=== PATIENT | female | born 1945 | race Caucasian/White ===

== ENCOUNTER 2016-10-18 22:41 | Inpatient (IN) | payer MEDICARE, OTHER ==
--- NOTE | ~2016-10-18 | HP ---
Unit #: [id number] #: [id number] Patient: SUMIT MELENDEZ [id number] [address] [place], [place] [address] [id number] I MR#: [id number] NAME: SUMIT MELENDEZ ROOM: 67361 Age: 71 Sex: F Admission Date: 10/19/2016 : 1945 Attending Physician: Destiney Acevedo M.D. Primary Care Physician: No Primary Care Physician HISTORY AND PHYSICAL CHIEF COMPLAINT Hospital acquired pneumonia with acute hypoxic respiratory failure. HISTORY This pleasant 71-year-old female with hypertension, hypothyroidism, COPD, is admitted for pneumonia. Patient was recently admitted to [facility] for a right total hip dislocation requiring closed reduction under general anesthesia. It sounds as if she was admitted for greater than 48 hours. Shortly after her discharge three days ago she began to experience nonproductive cough with increasing shortness of breath, wheezing, chills, fevers, sweats, pleuritic chest pain, and anorexia. She presented to this emergency department late last evening where her initial O2 saturation was 94% on room air, but she currently is requiring an Oxymizer to keep her O2 sats 93%. On examination she has significant rhonchi throughout. Chest x-ray shows a 5.6 cm right lower lobe density, likely pneumonia, although a mass could not be excluded. PAST MEDICAL HISTORY 1. Hypertension. 2. Hypothyroidism. 3. COPD/asthma. 4. Restless leg syndrome. 5. DJD. 6. Bilateral total hip replacement. Patient is status post recent right hip closed reduction for dislocated right total hip. 7. Appendectomy. 8. Cholecystectomy. 9. Lap band with removal. 10. Hysterectomy. ALLERGIES Sulfa, clindamycin, Macrodantin, Levaquin and Pyridium. HOME MEDICATIONS Lortab 5/325 b.i.d. p.r.n.; Ventolin inhaler as needed; Elavil 25 mg q.h.s.; Norvasc 5 mg daily; aspirin 81 mg daily; BuSpar 5 mg daily; Flexeril 5 mg t.i.d. p.r.n.; Dexilant 60 mg daily; vitamin D2 50,000 units each week; [place] 180 mg daily; Neurontin 600 mg b.i.d.; Synthroid 0.125 mg daily; Singulair 10 mg daily; multivitamin daily; Aleve 220 mg t.i.d. p.r.n.; and possibly potassium. FAMILY HISTORY Unit #: [id number] #: [id number] Patient: SUMIT MELENDEZ Negative for heart and lung disease. SOCIAL HISTORY The patient lives with her . She smoked one pack per day of tobacco until 1980 when she stopped smoking, she does not drink alcohol. REVIEW OF SYSTEMS Notable for cough, shortness of breath, pleuritic chest pain, fever, sweats, chills, poor p.o. intake, recent dislocated hip, hypertension, DJD, cardiac murmurs, hypothyroidism, COPD, asthma, restless leg syndrome and above mentioned surgeries. All other systems were reviewed and are otherwise negative. PHYSICAL EXAMINATION GENERAL: Pleasant, mildly anxious, 71-year-old female who currently is in no acute distress. VITAL SIGNS: Temperature 100.8, pulse 109, respirations 16, blood pressure 129/69, O2 saturation currently is 94% on 12 L of an Oxymizer. HEENT: Eyes - PERRLA, extraocular muscles are intact. Pharynx is benign. NECK: Supple without adenopathy or thyromegaly. CHEST: Rhonchi throughout. CARDIAC: Normal S1 and S2. I believe I hear cardiac murmurs, but difficult to auscultate above rhonchi. ABDOMEN: Bowel sounds are present. No hepatosplenomegaly, tenderness, or masses. EXTREMITIES: Without edema. Pedal pulses are present. NEUROLOGIC: Patient is awake, alert, and oriented. Cranial nerves are intact. Equal strength throughout. DIAGNOSTIC STUDIES ADMISSION LABS: Hematocrit is 33.3, white blood count is 16.8, normal platelet count, 12 bands are noted. Cardiac markers are negative. SMA 12 - glucose 112, potassium 2.9, chloride 99, lactic acid is pending. Blood cultures are pending. IMAGING STUDIES: Chest x-ray 5.6 cm right lower lobe density, likely pneumonia, although a mass could not be excluded. ASSESSMENT 1. Hospital acquired pneumonia with acute hypoxic respiratory failure. 2. Recent closed reduction, right total hip dislocation under general anesthesia at [facility]. 3. COPD/asthma. 4. Essential hypertension. 5. Restless leg syndrome. 6. Hypothyroidism. 7. Hypokalemia. 8. Multiple antibiotic allergies. 9. Cardiac markers. PLANS 1. Vancomycin, cefepime and doxycycline. 2. IV fluids. 3. Await lactic acid. 4. Replace potassium and check magnesium. 5. Obtain ABG. Will ask for a CT scan when more stable. 6. DuoNeb. 7. Supplemental oxygen. Unit #: [id number] #: [id number] Patient: SUMIT MELENDEZ 8. DVT prophylaxis. 9. Old records. 10. Pulmonary consultation. 11. Mucolytics. Dictated by Destiney Acevedo M.D. AML/ts TD: 10/19/2016 05:03 JOB #: [id number] CC: Dr. Nguyen ([place]) HISTORY AND PHYSICAL Page 1 of 1 X Destiney Acevedo MD X HISTORY AND PHYSICAL
--- NOTE | ~2016-10-18 | CR71 ---
[facility] A Service of [facility] RADIOLOGY TEXT RESULTS PATIENT: SUMIT MELENDEZ LOCATION: [place] [address] : [birth year] UNIT #: [id number] AGE: [address]: Stephania Smith MD SEX: F ORDER DR: [id number] [facility] [address] [facility]. [place], [place] [address] [id number] I MR#: [id number] Acc #: [id number] NAME: SUMIT MELENDEZ : 1945 SEX: F STUDY DATE/TIME: 10/20/2016 5:51 UNIT: [facility] ROOM: [facility] STUDY DESCRIPTION: CR Chest Single View Attending Physician: Stephania Smith M.D. Ordering Physician: Rosales David M.D. Primary Care Physician: Primary Care Physician No MEDICAL IMAGING REPORT This report is preliminary unless electronic signature is present EXAM Portable chest INDICATION Follow up pneumonia. COMPARISON 10/19/2016. FINDINGS Improved inspiratory volume. Persistent airspace consolidation in the right base and atelectasis in the left base. Heart size stable. IMPRESSION Persistent airspace consolidation within the right base consistent with pneumonia. Dictated by... Loyd Dennis M.D. THIS IS AN ELECTRONICALLY VERIFIED REPORT Loyd Dennis M.D. at 10/21/2016 6:11 PM YAMIL/selbe TD: 10/20/2016 07:08 JOB #: [id number] MEDICAL IMAGING REPORT Page 1 of 1 COPY
--- NOTE | ~2016-10-18 | CO ---
Unit #: [id number] #: [id number] Patient: SUMIT OLSON [id number] [address] [place], [place] [address] [id number] I MR#: [id number] NAME: SUMIT OLSON ROOM: [address]671 Age: 71 Sex: F Admission Date: 10/19/2016 : 1945 Attending Physician: Stephania Smith M.D. Primary Care Physician: No Primary Care Physician Consultation Date: 10/19/2016 CONSULTATION REPORT REASON FOR CONSULTATION Abnormal chest x-ray. HISTORY OF PRESENT ILLNESS In brief, since I have already dictated this 5 times, this is a 71-year-old female who carries the diagnoses of asthma and COPD who was at [facility] Monday for hip dislocation. She underwent closed reduction. She has had a several-day history of increasing cough, shortness of breath, vague chest discomfort. In the hospital she was found to have an abnormal chest x-ray. She also requires Oxymizer oxygen to keep her sats adequate. Of note, she has had a 2-month history of increasing use of albuterol. She has been intolerant to inhaled steroids in the past. PAST MEDICAL HISTORY Past medical history is remarkable for COPD/asthma, hypertension, hypothyroidism, restless leg syndrome, arthritis, bilateral hip replacement. ALLERGIES Sulfa, clindamycin, Macrodantin, Levaquin, Pyridium. HOME MEDICATIONS Lortab, Ventolin inhaler, Elavil, Norvasc, BuSpar, Flexeril, Dexilant and a variety of other medications, including Singulair and Synthroid. FAMILY HISTORY No familial lung disease. SOCIAL HISTORY She quit smoking in 1980. REVIEW OF SYSTEMS As above. She denies any chest pain or palpitations of anginal quality, abdominal pain, melena, hematuria, dysuria, focal weakness, paresthesias. Further review of systems is negative. PHYSICAL EXAMINATION GENERAL: Examination reveals a pleasant female accompanied by her daughter. VITAL SIGNS: She has a T max of 100.8. Pulse is 93, respiratory rate 25, blood pressure 106/59. She is 4'11", 184 pounds. HEENT: Pupils equal, round and reactive to light. Sclerae anicteric. Head atraumatic. Mucous membranes moist. Mallampati class 4 oropharynx. Unit #: [id number] #: [id number] Patient: SUMIT OLSON She has full dentures in place. NECK: Supple. No supraclavicular or cervical adenopathy appreciated. She has supraclavicular emphysematous changes, right greater than left. CHEST: Rare wheeze. She has egophony in right lower lobe. A few crackles left lower lobe. CARDIAC: Examination reveals a regular rate and rhythm. Loud murmur. ABDOMEN: Abdomen is soft, nontender. No hepatomegaly or rebound. EXTREMITIES: Extremities reveal no clubbing, cyanosis or edema. No calf tenderness. SKIN: Warm and dry without rash or diaphoresis. NEUROLOGIC: Grossly intact. No focal muscular or sensory deficits. DIAGNOSTIC STUDIES IMAGING: Chest x-ray with dense area right lower lobe. LABORATORY EXAMINATION: Arterial blood gases - pH 7.45, pCO2 36, pO2 of 86 on 12 liters. BUN is 13, creatinine 0.8. Cardiac enzymes negative. White blood cell count was 16.8, now 13.1. Hemoglobin 9.9. Blood cultures pending. CARDIOVASCULAR: EKG unremarkable. IMPRESSION 1. Abnormal chest x-ray. Likely pneumonia given her acute history, leukocytosis, etc., but certainly must follow until clear. 2. Acute hypoxemic respiratory failure. 3. COPD/asthma, intolerant to inhaled steroids. 4. Loud systolic murmur. 5. Anemia. 6. Multiple medical problems listed above. PLAN Agree with IV antibiotics. Agree that allergies limit choices. Add prednisone, nebulized bronchodilators. Wean oxygen as tolerated and check O2 needs at discharge. She will need close outpatient followup until this clears. Certainly, if her procalcitonin level is elevated, thereby supporting the diagnosis of pneumonia, and she responds appropriately to treatment, she should not need a CT scan this hospitalization. Certainly, if she does not respond as suggested, then CT scan will be performed. However, she certainly will need close outpatient followup, including possible CT scan if her chest x-ray does not normalize. Thank you very much for allowing me to participate in the care of Ms. Olson. Dictated by... Rosales David M.D. MAIRA/lolita TD: 10/19/2016 12:39 JOB #: [id number] Unit #: [id number] #: [id number] Patient: SUMIT OLSON CONSULTATION REPORT Page 1 of 1 X Rosales David MD CONSULTATION REPORT
--- NOTE | ~2016-10-18 | CR72 ---
[facility] A Service of [facility] RADIOLOGY TEXT RESULTS PATIENT: SUMIT MELENDEZ LOCATION: [place] : [birth year] UNIT #: [id number] AGE: [address]: Destiney Acevedo MD SEX: F ORDER DR: [id number] [facility] [address] [facility]. [place], [place] [address] [id number] MR#: [id number] Acc #: [id number] NAME: SUMIT MELENDEZ : 1945 SEX: F STUDY DATE/TIME: 10/18/2016 23:51 UNIT: [facility] ROOM: STUDY DESCRIPTION: CR Chest Single View Portable Attending Physician: John Pierce Ordering Physician: Ed Doc Rgeina Andrade Primary Care Physician: Primary Care Physician No MEDICAL IMAGING REPORT This report is preliminary unless electronic signature is present EXAM Portable chest INDICATIONS Fever, cough, shortness of air for 4 days. COMPARISON 03/03/2008 FINDINGS A portable view of the chest was obtained. Heart is mildly enlarged. The left lung is clear. There is an oval area of density in the right lower lobe measuring at least 5.6 cm in diameter. Given the patient's symptoms, this is likely a pneumonia. The bones are unremarkable. IMPRESSION 5.6 cm are of density right lower lobe which is probably a pneumonia based on the patient's symptoms. Mass cannot be completely excluded and I would recommend a followup chest x-ray after appropriate treatment. Dictated by... Juan Antonio Bull M.D. THIS IS AN ELECTRONICALLY VERIFIED REPORT Juan Antonio Bull M.D. at 10/19/2016 3:37 AM STEVEN/william TD: 10/19/2016 02:25 JOB #: [id number] MEDICAL IMAGING REPORT [facility] A Service [facility] RADIOLOGY TEXT RESULTS PATIENT: SUMIT MELENDEZ LOCATION: [facility] : [birth year] UNIT #: [id number] AGE: [address]: Destiney Acevedo MD SEX: F ORDER DR: Page 1 of 1 COPY
--- NOTE | ~2016-10-18 | DS ---
Unit #: [id number] #: [id number] Patient: SUMIT OLSON [id number] [address] [address] [id number] I MR#: [id number] NAME: SUMIT OLSON ROOM: [facility] Age: 71 Sex: F Admission Date: 10/19/2016 : 1945 Discharge Date: 10/21/2016 Attending Physician: Stephania Smith M.D. Primary Care Physician: No Primary Care Physician DISCHARGE SUMMARY PRINCIPAL DIAGNOSES 1. Sepsis secondary to right lower lobe pneumonia, questionable healthcare associated versus aspiration versus other. 2. Acute hypoxic respiratory failure, now resolved. 3. Hypokalemia. 4. Ijlqxlux-kg-bqzrlq tricuspid regurgitation. 5. Aortic stenosis, moderate. 6. Mild mitral regurgitation. 7. Hypertension. 8. Obesity. 9. Normocytic anemia with discharge hemoglobin of 8.5. 10. Seasonal allergies. 11. Depression. 12. Gastroesophageal reflux disease. 13. Hypothyroidism. 14. Restless leg syndrome. 15. Chronic obstructive pulmonary disease versus asthma. 16. Probable obstructive sleep apnea. 17. Pulmonary hypertension. CONSULTANTS Dr. David, pulmonology. DIAGNOSTIC STUDIES IMAGING: Chest x-ray on October 18, 2016 with a 5.6 cm density in the right lower lobe concerning for pneumonia. Chest x-ray on October 19, 2016 with increasing opacity in the right lung base. CARDIOVASCULAR: Two-dimensional echocardiogram on October 19, 2016 with ejection fraction of 50% to 55%. Moderately dilated left atrium noted. Pnxx-ql-nnvrbgcs aortic stenosis. Mild mitral regurgitation. Yuqmwrzl-kw-fsnctw tricuspid regurgitation. Right ventricular systolic pressure of 45 mmHg. CLINICAL HISTORY AND HOSPITAL COURSE Ms. Olson is a very nice 71-year-old female who presented to the emergency department with shortness of breath. Please refer to H and P for further details. The patient was found to be hypoxic upon presentation. Chest x-ray revealed right lower lobe infiltrate. Lab work revealed a significant leukocytosis with white blood cell count of 16.8. She was also hypokalemic with a potassium of 2.9. The patient was subsequently admitted. Unit #: [id number] #: [id number] Patient: SUMIT OLSON The patient was placed on broad-spectrum antibiotics to cover healthcare-associated pneumonia, and Dr. David was consulted. The patient was also started on steroids due to the significant amount of pneumonia noted. With this treatment, the patient improved rapidly. Her hypoxia was resolved, and room air O2 sats are 92%. Causative organism was not obtained. Leukocytosis has essentially resolved. Will continue antibiotic therapy as outlined below and will need followup chest x-ray as an outpatient to ensure clearing. Two-dimensional echocardiogram was done due to significant murmur upon examination. The patient was found to have significant valvular abnormality, as noted. She will follow up with her primary ferry hand as an outpatient. The patient did have a drop in hemoglobin upon hospitalization from approximately 10 to 8.5; however, she was on aggressive IV hydration for the first 24 hours or so. She has had no signs or symptoms of GI bleed, and this can be followed up as an outpatient. DISCHARGE CONDITION Stable. DISCHARGE STATUS Discharge to home. DISCHARGE MEDICATIONS 1. Prednisone 20 mg tablet, 2 tablets daily for 3 days, then discontinue. 2. Doxycycline 100 mg p.o. b.i.d. for 5 days. 3. Ceftin 500 mg p.o. b.i.d. for 5 days. 4. Ventolin inhaler 1 puff q.4 hours p.r.n. shortness of breath. 5. Neurontin 600 mg b.i.d. 6. Amitriptyline 25 mg at bedtime. 7. Fexofenadine 180 mg daily. 8. BuSpar 5 mg daily. 9. Norvasc 5 mg daily. 10. Singulair 10 mg daily. 11. A daily multivitamin. 12. Aspirin 81 mg daily. 13. Aleve 220 mg p.o. q.8 hours p.r.n. pain. 14. Hilton 5/325 mg 1 tablet b.i.d. p.r.n. pain. 15. Dexilant 60 mg daily. 16. Klor-Con 20 mEq t.i.d. 17. Flexeril 5 mg p.o. t.i.d. p.r.n. muscle spasm. 18. Levothyroxine 125 mcg daily. 19. Vitamin D2 - 50,000 units weekly on Tuesdays. DISCHARGE INSTRUCTIONS Patient was instructed to follow a heart healthy diet. She is to have 6 small meals daily. She can increase her activity as tolerated. FOLLOW-UP 1. Patient will follow up with her primary care provider, Dr. Nguyen in approximately 1 month. 2. She will follow up with Radha Marques A.P.R.N., Dr. David's nurse practitioner, in 2 weeks. 3. She will follow up with Dr. David after that. Unit #: [id number] #: [id number] Patient: SUMIT OLSON 4. Outpatient polysomnography will need to be arranged. 5. Chest x-ray will need to be done in the office. 6. The patient should follow up with Dr. Blackman, her primary ferry hand in approximately 1 month. Dictated by... Stephania Smith M.D. NILAY/lolita TD: 10/24/2016 07:39 JOB #: [id number] DISCHARGE SUMMARY Page 1 of 1 X Stephania Smith MD X DISCHARGE SUMMARY
--- NOTE | ~2016-10-18 | CR72 ---
[facility] A Service of [facility] RADIOLOGY TEXT RESULTS PATIENT: SUMIT MELENDEZ LOCATION: [place] [id number] : [birth year] UNIT #: [id number] AGE: [address]: Stephania Smith MD SEX: F ORDER DR: [id number] [facility] [address] [facility]. [place], [place] [address] [id number] I MR#: [id number] Acc #: [id number] NAME: SUMIT MELENDEZ : 1945 SEX: F STUDY DATE/TIME: 10/19/2016 12:03 UNIT: [facility] ROOM: [id number] STUDY DESCRIPTION: CR Chest Single View Portable Attending Physician: Stephania Smith M.D. Ordering Physician: Rosales David M.D. Primary Care Physician: Primary Care Physician No MEDICAL IMAGING REPORT This report is preliminary unless electronic signature is present EXAM Chest portable 10/19/2016 1203 hours HISTORY 71-year-old with shortness of air and cough. Symptoms began 5 days ago. COMPARISON Chest x-ray 10/18/2016. FINDINGS Portable upright chest demonstrates stable cardiomegaly and tortuous atherosclerotic aorta. Ovoid density at the right base appears increased with obscuration of the ovoid well-defined density seen yesterday. This could be due to worsening parenchymal change or increasing surrounding fluid. There is slight increase in band-like atelectasis at the left base. IMPRESSION Increasing opacity at the right lung base obscuring the margins of the ovoid masslike density seen on yesterday's exam. This could be due to worsening underlying airspace change or increasing right pleural fluid surrounding the density. There is increase in linear atelectasis at the left base. STAT * RESULT Dictated by... Holly Lei M.D. THIS IS AN ELECTRONICALLY VERIFIED REPORT Holly Lei M.D. at 10/19/2016 2:29 PM SMM/kokos [facility] A Service of [facility] RADIOLOGY TEXT RESULTS PATIENT: SUMIT MELENDEZ LOCATION: [facility] [id number] : [birth year] UNIT #: [id number] AGE: [address]: Stephania Smith MD SEX: F ORDER DR: TD: 10/19/2016 13:23 JOB #: [id number] MEDICAL IMAGING REPORT Page 1 of 1 COPY
--- NOTE | ~2016-10-18 | EKG ---
PATIENT: SUMIT MELENDEZ UNIT #: [id number] Ventricular Rate: 92 BPM Atrial Rate: 92 BPM P-R Interval: 172 ms QRS Duration: 122 ms Q-T Interval: 370 ms QTC Calculation(Bezet): 457 ms P Ely: 138 degrees Calculated R Ely: -29 degrees Calculated T Ely: 141 degrees Diagnosis Line: Sinus rhythm with PACs Diagnosis Line: Left ventricular hypertrophy with QRS widening and Diagnosis Line: repolarization abnormality Diagnosis Line: Abnormal ECG Diagnosis Line: No previous ECGs available Diagnosis Line: Confirmed by ANDREW INGRAM MD ([id number]) on Diagnosis Line: 10/23/2016 11:04:00 AM INTERPRETING MD: NANETTE
[2016-10-18] MEDS ORDERED: LORTAB 5-325 M1 EACH PO (22:52)
[2016-10-18] MEDS ORDERED: ALBUTEROL17 GM INH (22:52)
[2016-10-18] MEDS ORDERED: AMITRIPTYLINE H25 MG PO (22:53)
[2016-10-18] MEDS ORDERED: CHEWABLE ASPIRI81 MG PO (22:53)
[2016-10-18] MEDS ORDERED: BUSPAR5 MG PO (22:53)
[2016-10-18] MEDS ORDERED: NORVASC PO (22:53)
[2016-10-18] MEDS ORDERED: FLEXERIL PO (22:54)
[2016-10-18] MEDS ORDERED: DEXILANT60 MG PO (22:54)
[2016-10-18] MEDS ORDERED: SYNTHROID125 PO (22:55)
[2016-10-18] MEDS ORDERED: SINGULAIR PO (22:55)
[2016-10-18] MEDS ORDERED: VITAMIN D22000 UNIT PO (22:55)
[2016-10-18] MEDS ORDERED: NEURONTIN600 MG PO (22:55)
[2016-10-18] MEDS ORDERED: ALLER-EASE180 MG PO (22:55)
[2016-10-18] MEDS ORDERED: ALEVE220 M1 PO (22:56)
[2016-10-18] MEDS ORDERED: KCL PO (22:56)
[2016-10-18] MEDS ORDERED: MULTIVITAMINS1 EAC3 PO (22:56)
[2016-10-19 00:38] LABS: POC - CKMB <1.0 ng/mL (0.0-7.9); POC - TROPONIN <0.05 ng/mL (<=0.05)
[2016-10-19 01:19] LABS: BASOPHIL% 0.1 % (0-2.5); DIFF IND YES; HEMATOCRIT 33.3 % (35.0-45.0); HEMOGLOBIN 10.6 gm/dL (12.0-16.0); LYMPHOCYTE# 0.8 X10e3 (1.0-3.5); LYMPHOCYTE% 4.9 % (17.0-45.0); MEAN CELL VOLUME 86.8 FL (83-96); MEAN CORPUSCULAR HEMOGLOBIN 27.7 PG (28-34); MEAN CORPUSCULAR HGB CONC 31.9 g/dL (30-36); MEAN PLATELET VOLUME 10.6 FL (6.5-11.5); MONOCYTE# 1.6 X10e3 (0-1.0); MONOCYTE% 9.4 % (3.0-12.0); NEUTROPHIL# 14.4 X10e3 (1.5-7.1); NEUTROPHIL% 85.6 % (40-75); PLATELET COUNT 173 X10e3 (140-420); RED BLOOD COUNT 3.83 X10e (3.90-5.30); RED CELL DISTRIBUTION WIDTH 14.8 % (11.0-15.5); WHITE BLOOD COUNT 16.8 X10e3 (4.0-10.5)
[2016-10-19 01:40] LABS: ANISOCYTOSIS SL; BUN/CREATININE RATIO 16.25; CALCIUM SERUM 8.5 mg/dL (8.4-10.2); CREATININE SERUM 0.8 mg/dL (0.6-1.4); GLOM FILT RATE Estimated 74.8 mL/min (>60); PLATELET ESTIMATE NORMAL (NORMAL)
[2016-10-19 01:41] LABS: HYPOCHROMIA SL; MICROCYTOSIS SL; POIKILOCYTOSIS SL
[2016-10-19 01:42] LABS: POTASSIUM 2.9 mmol/L (3.5-5.1)
[2016-10-19 04:29] LABS: ARTERIAL BLOOD GAS PCO2 36.1 mmHg (35.0-45.0); ARTERIAL BLOOD GAS PO2 86.9 mmHg (80.0-100); ARTERIAL BLOOD GAS pH 7.458 (7.350-7.450)
[2016-10-19 04:30] LABS: ARTERIAL BLD GAS O2 SATURATION 97.7 % (90.0-100.0); ARTERIAL BLOOD GAS ALLEN TEST NORMAL; ARTERIAL BLOOD GAS ART SITE RIGHT RADIAL; ARTERIAL BLOOD GAS CARBOXY HB 0.8 %sat (0.0-9.0); ARTERIAL BLOOD GAS DELIVERY OXYMIZER; ARTERIAL BLOOD GAS HCO3 25.5 mmol/L; ARTERIAL BLOOD GAS MET HB 1.1 %sat (0.0-2.0); ARTERIAL DRAW? YES
[2016-10-19 07:18] LABS: BASOPHIL% 0.2 % (0-2.5); HEMATOCRIT 31.1 % (35.0-45.0); HEMOGLOBIN 9.9 gm/dL (12.0-16.0); LYMPHOCYTE# 0.7 X10e3 (1.0-3.5); LYMPHOCYTE% 5.5 % (17.0-45.0); MEAN CELL VOLUME 87.4 FL (83-96); MEAN CORPUSCULAR HEMOGLOBIN 27.8 PG (28-34); MEAN CORPUSCULAR HGB CONC 31.9 g/dL (30-36); MEAN PLATELET VOLUME 9.2 FL (6.5-11.5); MONOCYTE# 1.1 X10e3 (0-1.0); MONOCYTE% 8.4 % (3.0-12.0); NEUTROPHIL# 11.3 X10e3 (1.5-7.1); NEUTROPHIL% 85.9 % (40-75); PLATELET COUNT 155 X10e3 (140-420); RED BLOOD COUNT 3.55 X10e (3.90-5.30); RED CELL DISTRIBUTION WIDTH 14.8 % (11.0-15.5); WHITE BLOOD COUNT 13.1 X10e3 (4.0-10.5)
[2016-10-19 07:19] LABS: DIFF IND NO
[2016-10-19 08:09] LABS: ALBUMIN SERUM 2.8 g/dL (3.5-5.0); BILIRUBIN,TOTAL 1.5 mg/dL (0.2-2.0); BUN/CREATININE RATIO 16.25; CALCIUM SERUM 8.1 mg/dL (8.4-10.2); CREATININE SERUM 0.8 mg/dL (0.6-1.4); GLOM FILT RATE Estimated 74.8 mL/min (>60); MAGNESIUM 1.6 mg/dL (1.6-3.0); POTASSIUM 3.7 mmol/L (3.5-5.1); PROTEIN TOTAL SERUM 6.1 g/dL (6.0-8.3)
[2016-10-20 05:24] LABS: HEMATOCRIT 29.5 % (35.0-45.0); HEMOGLOBIN 9.3 gm/dL (12.0-16.0); MEAN CELL VOLUME 87.2 FL (83-96); MEAN CORPUSCULAR HEMOGLOBIN 27.4 PG (28-34); MEAN CORPUSCULAR HGB CONC 31.4 g/dL (30-36); MEAN PLATELET VOLUME 10.1 FL (6.5-11.5); RED BLOOD COUNT 3.39 X10e (3.90-5.30); RED CELL DISTRIBUTION WIDTH 15.1 % (11.0-15.5); WHITE BLOOD COUNT 14.9 X10e3 (4.0-10.5)
[2016-10-20 06:30] LABS: BUN/CREATININE RATIO 18.57; CALCIUM SERUM 7.9 mg/dL (8.4-10.2); CREATININE SERUM 0.7 mg/dL (0.6-1.4); GLOM FILT RATE Estimated 87.8 mL/min (>60); POTASSIUM 3.3 mmol/L (3.5-5.1)
[2016-10-21 06:09] LABS: HEMATOCRIT 26.3 % (35.0-45.0); HEMOGLOBIN 8.5 gm/dL (12.0-16.0); MEAN CORPUSCULAR HEMOGLOBIN 28.3 PG (28-34); MEAN CORPUSCULAR HGB CONC 32.5 g/dL (30-36); RED BLOOD COUNT 3.02 X10e (3.90-5.30); RED CELL DISTRIBUTION WIDTH 15.2 % (11.0-15.5)
[2016-10-21 06:47] LABS: CALCIUM SERUM 8.2 mg/dL (8.4-10.2); CREATININE SERUM 0.5 mg/dL (0.6-1.4); GLOM FILT RATE Estimated 98.1 mL/min (>60); MAGNESIUM 1.7 mg/dL (1.6-3.0); POTASSIUM 3.6 mmol/L (3.5-5.1)
[2016-10-21] MEDS ORDERED: PREDNISONE PO (11:31)
[2016-10-21] MEDS ORDERED: DOXYCYCLINE HY100 M3 PO (11:32)
[2016-10-21] MEDS ORDERED: CEFTIN PO (11:34)
== END 2016-10-21 13:53 | disposition home health service (06) | DRG 871 ==
LOC: CED 22:41 → C5B 10-19 03:05 → CEDOF 10-19 03:05 → CED 10-19 03:05 → CEDOF 10-19 03:20 → C5B 10-19 16:23 → CEDOF 10-19 16:23 → C5B 10-21 13:53
PROVIDERS: Emergency Medicine; Internal Medicine
PROC: B24BZZZ Ultrasonography of Heart with Aorta (ICD-10-PCS; principal; 2016-10-19)
DX: A41.9 Sepsis, unspecified organism (principal); J18.9 Pneumonia, unspecified organism; J96.01 Acute respiratory failure with hypoxia; D64.9 Anemia, unspecified; I27.2 Other secondary pulmonary hypertension; E44.0 Moderate protein-calorie malnutrition; J44.0 Chronic obstructive pulmonary disease with (acute) lower respiratory infection; J44.1 Chronic obstructive pulmonary disease with (acute) exacerbation; E87.6 Hypokalemia; I08.3 Combined rheumatic disorders of mitral, aortic and tricuspid valves; I10 Essential (primary) hypertension; J30.2 Other seasonal allergic rhinitis; F32.9 Major depressive disorder, single episode, unspecified; K21.9 Gastro-esophageal reflux disease without esophagitis; E03.9 Hypothyroidism, unspecified; G25.81 Restless legs syndrome; G47.33 Obstructive sleep apnea (adult) (pediatric); Y95 Nosocomial condition; E66.9 Obesity, unspecified; Z68.37 Body mass index [BMI] 37.0-37.9, adult; Z87.891 Personal history of nicotine dependence; Z90.49 Acquired absence of other specified parts of digestive tract; Z90.710 Acquired absence of both cervix and uterus; Z88.1 Allergy status to other antibiotic agents; Z88.2 Allergy status to sulfonamides; Z88.8 Allergy status to other drugs, medicaments and biological substances; Z96.643 Presence of artificial hip joint, bilateral; Z91.19 Patient's noncompliance with other medical treatment and regimen
CPT/HCPCS: 36415; 36600; 71010; 80048; 80053; 82308; 82553; 82803; 83605; 83735; 83880; 84484; 85025; 85027; 87040; 87070; 87205; 92610; 93005; 93306; 94640; 94760; 96365; 97116; 97161; 97165; 97535; 99285; G8978-GP; G8979-GO; G8979-GP; G8980-GO; G8987-GO; G8988-GO; G8989-GO; G8996-GN; G8997-GN; G8998-GN; J0692; J1650; J3370